=== PATIENT | male | born 1985 | race Caucasian/White ===

== ENCOUNTER → 2017-01-15 | Outpatient (CLI) | payer MEDICAID ==
[2017-01-15 15:34] LABS: CH 28.7; HCT 46.3 % (39.0-53.0); HDW 2.54; MCH 28.4 pg (25.0-35.0); MCHC 34.6 g/dL (31.0-37.0); MCV 82.2 fL (80.0-100.0); Mean Platelet Volume 7.4; RBC 5.63 m/uL (4.30-5.90); RDW 13.6 % (11.5-15.5); WBC 7.7 k/uL (3.8-10.6)
[2017-01-15 15:46] LABS: ALT 33 U/L (21-72); AST 23 U/L (17-59); Alkaline Phosphatase 67 U/L (38-126); Amylase 68 U/L (30-110); Anion Gap 15 mmol/L; Blood Urea Nitrogen 14 mg/dL (9-20); Calcium 10.2 mg/dL (8.4-10.2); Carbon Dioxide 19 mmol/L (22-30); Chloride 109 mmol/L (98-107); Glucose 101 mg/dL (74-99); Non-African American GFR(MDRD) >60 (>60 ml/min/1.73 sqM); Potassium 3.7 mmol/L (3.5-5.1); Sodium 143 mmol/L (137-145); Total Bilirubin 0.7 mg/dL (0.2-1.3); Total Protein 8.6 g/dL (6.3-8.2)
--- NOTE | 2017-01-16 07:02 | NM ---
EXAMINATION TYPE: NM hepatobiliary w EF DATE OF EXAM: 01/15/2017 COMPARISON: NONE HISTORY: Right upper quadrant pain. TECHNIQUE: After the intravenous administration of 5.37 mCi Tc 99m Mebrofenin hepatobiliary scintigra phy is performed. Immediate images post injection. FINDINGS: There is satisfactory initial accumulation of tracer by the liver. The gallbladder is visualized wit hin 46 minutes. The small bowel activity is noted within 8 minutes. At one hour 8 ounces of oral en sure plus is given to mimic CCK and gallbladder ejection fraction is calculated at 74 %, in the olegario l range. Therefore there is no scintigraphic evidence of cystic or common bile duct obstruction to s uggest acute cholecystitis or gallbladder dyskinesia. IMPRESSION: NORMAL NUCLEAR MEDICINE HEPATOBILIARY SCAN WITH EJECTION FRACTION CALCULATION.
[2017-01-16 11:08] LABS: Cholesterol 234 mg/dL (<200); HDL Cholesterol 32 mg/dL (40-60); Triglycerides 206 mg/dL (<150)
== END | disposition home or self-care (01) ==
LOC: RADNMMAIN 15:02
PROVIDERS: ATTEND Family Medicine
DX: R10.11 Right upper quadrant pain (principal); K81.0 Acute cholecystitis
CPT/HCPCS: 80061; 80053; 82150; 83690; 85027; 36415; 78226; A9537

== ENCOUNTER 2018-01-13 07:30 | Day surgery (SDC) | payer BC, MEDICAID, OTHER ==
[2018-01-08 12:32] VITALS: BMI 31.0
[~2018-01-13 07:30] MED LIST: LACTATED RINGERS 1,000 ML IV SCH; LIDOCAINE 1% 20 ML VIAL (10MG/ML) FOR IV START INTRADERMA PRN
[2018-01-13 07:55] VITALS: TEMP 97.7
[2018-01-13] MEDS ORDERED: LACTATED RINGERS 1,000 ML IV ONE (07:56)
[2018-01-13] MEDS ORDERED: PROPOFOL 10 MG/ML 20 ML VIAL IV ONE ×2 (08:10→09:14)
[2018-01-13] MEDS ORDERED: MIDAZOLAM 2 MG/2 ML VIAL ONE (08:10)
[2018-01-13] MEDS ORDERED: LIDOCAINE 1% INJ 10MG/ML (20 ML MDV) ONE ×2 (08:10→09:14)
--- NOTE | 2018-01-13 08:34 | P.PCN ---
Date of Procedure: 01/13/18 Procedure(s) Performed: PREOPERATIVE DIAGNOSIS: GERD, abdominal pain, change in bowel habits POSTOPERATIVE DIAGNOSIS: 1. Gastritis with small erosions 2. Mild distal esophagitis 3. PROCEDURE: 1. EGD with biopsy 2. Colonoscopy ANESTHESIA: [facility] [place] SURGEON: Kash Navarro M.D. SPECIMENS: Antrum, distal esophagus ENDOSCOPIC PROCEDURE: The patient was on the endoscopy table in the left decubitus position. The Olympus gastroscope was inserted into the oropharynx and passed under direct visualization to the region of the third portion of the duodenum. From that point the scope was slowly withdrawn inspecting all surfaces carefully. There were no neoplastic inflammatory or polypoid lesions throughout the duodenum. The pylorus was widely patent. The stomach was carefully inspected. There was mild gastritis present with a few small erosions noted. A biopsy of the antrum took place to rule out H. pylori. Retroflexion revealed a normal hiatus. The esophagus was then carefully examined. There was mild distal esophagitis. 2 small linear erosions measuring less than 1 cm in length were identified. Biopsies of these were taken. The remainder the esophagus appeared normal. The patient was kept on the endoscopy table in the left decubitus position. The Olympus colonoscope was inserted into the anus and passed under direct visualization to the base of the cecum. The appendiceal orifice was visualized. From that point the scope was slowly withdrawn inspecting all surfaces carefully. There were no neoplastic inflammatory or polypoid lesions throughout the cecum, ascending, transverse, descending, sigmoid and rectum. There was mild sigmoid diverticulosis noted. Digital rectal examination was normal. The patient was taken to the recovery room in stable condition per anesthesia guidelines. RECOMMENDATIONS: Increase fiber. Antiacid therapy. Consider CAT scan for evaluation of subjective right mid abdominal mass.
[2018-01-13 08:56] VITALS: RESP 16
[2018-01-13 09:02] VITALS: BP 107/74; PULSE 90
== END 2018-01-13 09:10 | disposition home or self-care (01) ==
LOC: ORWHC2ENDO 07:30
PROVIDERS: ATTEND Surgery
DX: K29.50 Unspecified chronic gastritis without bleeding (principal); K21.0 Gastro-esophageal reflux disease with esophagitis; Q21.0 Ventricular septal defect; K57.30 Diverticulosis of large intestine without perforation or abscess without bleeding; Z79.899 Other long term (current) drug therapy
CPT/HCPCS: 88305; 45378; 43239; J2250; J2001; J2704

== ENCOUNTER → 2018-03-11 | Outpatient (CLI) | payer BC ==
--- NOTE | 2018-03-11 18:02 | CT ---
EXAMINATION TYPE: CT abdomen pelvis w con DATE OF EXAM: 03/11/2018 COMPARISON: NONE HISTORY: 32-year-old male Right upper quadrant bloating after eating. Diverticulitis, abdominal pain TECHNIQUE: Contiguous axial scanning of the abdomen and pelvis following administration of 100 ml Iso jackson 300 IV contrast. Delayed images through the kidneys and coronal/sagittal reconstructions perform ed. CT DLP: 1446 mGycm Automated exposure control for dose reduction was used. FINDINGS: Heart normal size without pericardial effusion. Lung bases clear without pleural effusion. Liver mildly enlarged at 18.7 cm. No focal lesion seen. Portal venous system is patent. No biliary ductal dilatation. Gallbladder, adrenal glands, right kidney, spleen with hilar splenule, and pancreas appear within nor mal limits. The left kidney is malrotated with a subcentimeter hypodensity at the lower pole too small for accura te CT characterization, probable cyst. A few prominent but nonenlarged mesenteric and right lower quadrant mesenteric lymph nodes measuring up to 5 mm. No mesenteric or retroperitoneal lymphadenopathy. Normal appendix. Oral contrast has progressed to the distal transverse colon. There is diverticulosis of the junction of the sigmoid and descending colon. Some pericolonic fat stranding at this level suspected to repres ent prominent pericolonic vessels rather than inflammation. No abnormal wall thickening. Mild to moderate circumferential bladder wall thickening. Pelvic phleboliths. Prostate gland measures 4.4 cm wide. No abnormal fluid collection in the pelvis or pelvic lymphadenopathy. Bones: No osseous destructive process. DISH in the lower thoracic spine. IMPRESSION: 1. DIVERTICULOSIS OF THE JUNCTION OF THE DESCENDING AND SIGMOID COLON. SOME PERICOLONIC SOFT TISSUE S TRANDING IS PRESENT HERE WELL ELSEWHERE SUGGESTING PROMINENT PERICOLONIC VESSELS RATHER THAN IN FLAMMATION. NO CONVINCING FINDINGS OF ACUTE DIVERTICULITIS. 2. MILD TO MODERATE CIRCUMFERENTIAL BLADDER WALL THICKENING COULD REPRESENT CHRONIC BLADDER WALL HYPE RTROPHY OR CYSTITIS. CLINICALLY CORRELATE. 3. MILD HEPATOMEGALY (18.7 CM).
== END | disposition home or self-care (01) ==
LOC: RADCTMAIN 13:08
PROVIDERS: ATTEND Surgery
DX: K57.30 Diverticulosis of large intestine without perforation or abscess without bleeding (principal); N32.89 Other specified disorders of bladder; R16.0 Hepatomegaly, not elsewhere classified
CPT/HCPCS: 74177; Q9967

== ENCOUNTER → 2022-11-24 | Outpatient (CLI) | payer MEDICAID, OTHER ==
--- NOTE | 2022-11-24 10:54 | US ---
EXAMINATION TYPE: US scrotum with doppler. Grayscale and color Doppler Duplex imaging performed of santiago cain scrotum. DATE OF EXAM: 11/24/2022 COMPARISON: NONE CLINICAL INDICATION: Male, 36 years old with history of N50.812 LEFT TESTICULAR PAIN; Left testicle p ain and swelling. EXAM MEASUREMENTS: TESTICLES: Right Testicle: 3.8 x 2.3 x 2.9 cm Left Testicle: 4.4 x 2.4 x 2.7 cm EPIDIDYMIS HEAD: Right Epididymis: 1.0 x .9 x 1.0 cm Left Epididymis: 1.8 x 1.2 x 1.8 cm Anechoic areas seen largest measuring 2.6 x 2.8 x 3.2 cm. Doppler performed to assess for testicular vascularity; good bilateral color flow and waveforms are s een. There is no evidence of testicular torsion. Presence of hydroceles: no Presence of varicoceles: no IMPRESSION: Noted is epididymal head cyst left epididymis.
== END | disposition home or self-care (01) ==
LOC: RADUSWWP 10:05
PROVIDERS: ATTEND Family Medicine
DX: N50.3 Cyst of epididymis (principal); N50.812 Left testicular pain
CPT/HCPCS: 76870; 93975

== ENCOUNTER 2023-11-03 11:33 | Day surgery (SDC) | payer MEDICAID ==
[2023-08-27 14:38] VITALS: BMI 33.4
[~2023-11-03 11:33] MED LIST changes: +LIDOCAINE 1% (10MG/ML) FOR IV START INTRADERMA PRN; -LIDOCAINE 1% 20 ML VIAL (10MG/ML) FOR IV START INTRADERMA PRN; +ONDANSETRON 4 MG/2 ML VIAL IVP PRN
[2023-11-03] MEDS: LACTATED RINGERS 1,000 ML IV ONE (11:55)
[2023-11-03] MEDS: MIDAZOLAM 2 MG/2 ML VIAL IVP ONE (12:10)
[2023-11-03] MEDS ORDERED: PROPOFOL 10 MG/ML 20 ML VIAL IV ONE (12:12)
--- NOTE | 2023-11-03 12:15 | P.GSHP ---
History of Present Illness H&P Date: 11/03/23 Chief Complaint: Change in bowel habits 37-year-old male here for colonoscopy. Patient with history of colon cancer in many first and second-degree family members. Patient with recent increase in constipation issues. No rectal bleeding. Past Medical History Additional Past Medical History / Comment(s): VSD, heart murmur. HAS BEEN HAVING ABDOMINAL PAIN AND BLOATING OFF AN ON PAST YEAR. History of Any Multi-Drug Resistant Organisms: None Reported Past Surgical History: Tonsillectomy Additional Past Surgical History / Comment(s): CYST REMOVED FROM RIGHT SHOULDER, COLONOSCOPY. Past Anesthesia/Blood Transfusion Reactions: No Reported Reaction Additional Past Anesthesia/Blood Transfusion Reaction / Comment(s): No blood transfusion. Smoking Status: Never smoker - Past Family History Mother Family Medical History: Cancer Additional Family Medical History / Comment(s): COLON CANCER, AT AGE 45. Father Family Medical History: Hyperlipidemia, Hypertension Medications and Allergies Home Medications Medication Instructions Recorded Confirmed Type Ivabradine HCl [Corlanor] 2.5 mg PO QAM 08/27/23 11/03/23 History diazePAM 2 mg PO ONCE 10/29/23 11/03/23 History Allergies Allergy/AdvReac Type Severity Reaction Status Date / Time No Known Allergies Allergy Verified 10/29/23 15:39 Surgical - Exam Vital Signs Temp Pulse Resp BP Pulse Ox 97.3 F L 108 H 20 140/83 99 11/03/23 11:49 11/03/23 11:49 11/03/23 11:49 11/03/23 11:49 11/03/23 11:49 Physical exam: General: Well-developed, well-nourished HEENT: Normocephalic, sclerae nonicteric Abdomen: Nontender, nondistended Extremities: No edema Neuro: Alert and oriented Assessment and Plan (1) Change in bowel habits Narrative/Plan: Will proceed with colonoscopy at this time. Current Visit: Yes Status: Acute Code(s): R19.4 - CHANGE IN BOWEL HABIT SNOMED Code(s): 19221585
[2023-11-03 12:27] VITALS: TEMP 97.3
--- NOTE | 2023-11-03 12:28 | P.PCN ---
Date of Procedure: 11/03/23 Procedure(s) Performed: PREOPERATIVE DIAGNOSIS: Change in bowel habits, family history of colon cancer POSTOPERATIVE DIAGNOSIS: Mild diverticulosis, mild proctitis PROCEDURE: Colonoscopy with biopsy ANESTHESIA: [facility] SURGEON: Kash Navarro M.D. SPECIMENS: Rectum ENDOSCOPIC PROCEDURE: The patient was placed on the endoscopy table in the left decubitus position. The Olympus colonoscope was inserted into the anus and passed under direct visualization to the base of the cecum. The appendiceal orifice was visualized. From that point the scope was slowly withdrawn inspecting all surfaces carefully. There were no neoplastic inflammatory or polypoid lesions throughout the cecum, ascending, transverse, descending, and sigmoid colon. In the rectum distally for a length of 4 to 5 cm proximal to the dentate line there was mild mucosal erythema, no ulcerations or erosions. The degree of inflammation was mild. Biopsies were taken labeled proctitis. There was mild left-sided diverticulosis. Digital rectal examination was normal. The patient was taken to the recovery room in stable condition per anesthesia guidelines. RECOMMENDATIONS: Resume diet. Await biopsy results. Repeat colonoscopy 5 years. Endoscopic findings do not explain the patient's symptoms. No plans for 5-ASA suppositories at this time.
[2023-11-03 13:05] VITALS: BP 100/85; PULSE 94; RESP 18
== END 2023-11-03 13:09 | disposition home or self-care (01) ==
LOC: ORWHC2ENDO 11:33
PROVIDERS: ATTEND Surgery
DX: K62.89 Other specified diseases of anus and rectum (principal); K57.30 Diverticulosis of large intestine without perforation or abscess without bleeding; Z80.0 Family history of malignant neoplasm of digestive organs; Z85.038 Personal history of other malignant neoplasm of large intestine
CPT/HCPCS: 45380; J2250; J2704; 88305

== ENCOUNTER → 2024-02-04 | Outpatient (CLI) | payer MEDICAID ==
--- NOTE | 2024-02-05 17:17 | CA ---
Transthoracic Echo Report Name: Rogelio Burt Age: 38 Gender: M : 1985 Exam Date: 02/04/2024 18:04 Exam Location: [facility] Ht (in): 68 Wt (lb): 220 Ordering Physician: Victor M Ontiveros DO Attending/Referring Phys: Astrid Hernnadez [facility] Senior Tax Analyst Tati Leija RDCS Procedure CPT: Indications: Q21.0 ventricular septal defect Cardiac Hx: Technical Quality: Fair Contrast 1: Total Dose (mL): Contrast 2: Total Dose (mL): MEASUREMENTS (Male / Female) Normal Values 2D ECHO LV Diastolic Diameter PLAX 3.1 cm 4.2 - 5.9 / 3.9 - 5.3 cm LV Systolic Diameter PLAX 1.7 cm IVS Diastolic Thickness 1.3 cm 0.6 - 1.0 / 0.6 - 0.9 cm LVPW Diastolic Thickness 1.3 cm 0.6 - 1.0 / 0.6 - 0.9 cm LV Relative Wall Thickness 0.9 LA Volume 56.9 cm??? 18 - 58 / 22 - 52 cm??? LA Volume Index 25.6 cm???/m??? 16 - 28 cm???/m??? M-MODE Aortic Root Diameter MM 4.1 cm LA Systolic Diameter MM 4.2 cm LA Ao Ratio MM 1.0 AV Cusp Separation MM 2.4 cm DOPPLER AV Peak Velocity 141.7 cm/s AV Peak Gradient 8.0 mmHg AV Mean Velocity 97.7 cm/s AV Mean Gradient 4.3 mmHg AV Velocity Time Integral 20.1 cm LVOT Peak Velocity 106.7 cm/s LVOT Peak Gradient 4.6 mmHg LVOT Velocity Time Integral 19.0 cm MV Area PHT 5.6 cm??? Mitral E Point Velocity 76.7 cm/s Mitral A Point Velocity 109.7 cm/s Mitral E to A Ratio 0.7 MV Deceleration Time 135.1 ms MV E' Velocity 8.7 cm/s Mitral E to MV E' Ratio 8.8 TR Peak Velocity 330.0 cm/s TR Peak Gradient 43.6 mmHg Right Ventricular Systolic Press 48.6 mmHg FINDINGS Left Ventricle Mildly increased left ventricular wall thickness. Left ventricular cavity size normal. Normal left ventricular systolic function with no obvious regional wall motion abnormalities. Left ventricular ejection fraction is estimated at 55-60 %. Possibility of small membranous ventricular septal defect cannot be ruled out. Right Ventricle Normal right ventricular size and function. Moderate pulmonary hypertension. Right Atrium Normal right atrial size. Left Atrium Normal left atrial size. Mitral Valve Structurally normal mitral valve. Mild mitral annular calcification. Aortic Valve Trileaflet aortic valve. No aortic valve stenosis or regurgitation. Tricuspid Valve Structurally normal tricuspid valve. Mild tricuspid regurgitation. Pulmonic Valve Structurally normal pulmonic valve. Pericardium No pericardial effusion. Aorta Normal size aortic root and proximal ascending aorta. CONCLUSIONS LVEF 55 to 60% Mild concentric LVH. Normal LV cavity size. No obvious regional wall motion abnormality Possibility of a small membranous VSD cannot be completely ruled out. Normal RV size and function. RVSP 48 mmHg, moderately elevated Normal biatrial size No significant valvular dysfunction Previewed by: Dr Sher Haynes (Electronically Signed) Final Date: 05 February 2024 17:16
== END | disposition home or self-care (01) ==
LOC: RADECHMAIN 17:49
PROVIDERS: ATTEND Family Medicine
DX: Q21.0 Ventricular septal defect (principal)
CPT/HCPCS: 93306

== ENCOUNTER → 2024-07-28 | Outpatient (CLI) | payer MEDICAID ==
[2024-07-28 16:06] VITALS: BP 153/98; PULSE 114; RESP 16; TEMP 98
--- NOTE | 2024-07-28 17:51 | P.SLEEP ---
History of Present Illness DATE: 07/28/2024 CONSULTATION/NEW PATIENT EVALUATION HISTORY OF PRESENT ILLNESS/SLEEP-WAKE EVALUATION: 38-year-old gentleman had been evaluated in the sleep center for possible obstructive sleep apnea hypopnea syndrome. SLEEP SCHEDULE: Usually sleep schedule 12 AM until 7 AM on weekdays and until 1112 5 AM on weekend. FALLING ASLEEP: Usually no significant problems with falling asleep. DURING SLEEP: Patient usually sleeps on the side position, has significant changes of the heart rate from bradycardia during the sleep to significant tachycardia, changes of oxygen during the night following information from his Jair Mcginnis MD. No history of hypnogogical hallucinations, sleep paralysis, or cataplexy. DURING THE DAY/WAKE STATE: In the morning patient wake up tired, has problems with memory, irritability, depression, anxiety. Vilas sleepiness scale is 9. Patient may take nap after work. PAST MEDICAL HISTORY: Ventricular septal defect, PVCs, increasing blood pressure in medical offices. PAST SURGICAL HISTORY: Tonsillectomy adenoidectomy. MEDICATIONS: None at the present time. SOCIAL HISTORY: Please see below. FAMILY HISTORY: Please see below. REVIEW OF SYSTEMS: Changing of heart rate,tiredness during the day. No fevers. No double vision. No recent chest pain. No shortness of breath. No abdominal pain. No bleeding episodes. No blood in urine. No seizure episodes. PHYSICAL EXAMINATION: GENERAL: A pleasant patient without any distress. VITAL SIGNS: Please see below, weight 250 pounds, BMI 36. HEENT: PERRLA, EOMI. Evaluation of oropharynx showed tongue protrudes midline, low position of soft palate Mallampati 4. NECK: Supple. No JVD. Thyroid is not palpable. 16 inches in circumference. LUNGS: Clear to percussion and to auscultation. Good air exchange. No wheezing or rhonchi. HEART: S1, S2 regular. No murmurs, gallops or rubs. ABDOMEN: Soft and nontender. Bowel sounds are present. No organomegaly appreciated. EXTREMITIES: No clubbing or cyanosis. HEEL PRICKER: Awake, alert, and oriented x3. Cranial nerves 2 to 7 intact. There is no fasciculation or atrophy noted. No focal deficits observed. ASSESSMENT: 1. Significant changing of heart rate during sleep, decreasing oxygen during the sleep by results from the patient's watch, extremely low position of soft palate. Obstructive sleep apnea hypopnea syndrome. 2. Obesity, BMI 36. 3. Hypertension in the office, today blood pressure 153/98. 4. History of ventricular septal defect. 5 history of cardiac arrhythmia. 6 . Status post tonsillectomy and adenoidectomy. PLAN: 1. Polysomnography for evaluation of patient's breathing during sleep. 2. Following plan after reading sleep study. 3. Preferable position during sleep on the side. 4. No driving if patient feels any sleepiness. Patient is aware of civil and criminal liability for unsafe driving. 5. Sleep hygiene with regular sleep time for at least 7.5-8 hours. 6. Watching and losing weight. Thank you very much for referring this patient for consultation. Sincerely, Mu Yun MD, PhD, FAASM. Diplomat of [place] [employer], Sleep Medicine Board by [place] [employer] [place] [employer] [facility] [place] cc: Victor M Ontiveros DO Past Medical History Additional Past Medical History / Comment(s): VSD, heart murmur. HAS BEEN HAVING ABDOMINAL PAIN AND BLOATING OFF AN ON PAST YEAR. History of Any Multi-Drug Resistant Organisms: None Reported Past Surgical History: Tonsillectomy Additional Past Surgical History / Comment(s): CYST REMOVED FROM RIGHT SHOULDER, COLONOSCOPY. Past Anesthesia/Blood Transfusion Reactions: No Reported Reaction Additional Past Anesthesia/Blood Transfusion Reaction / Comment(s): No blood transfusion. Past Psychological History: No Psychological Hx Reported Additional Psychological History / Comment(s): Needle phobia needs valium for IV. Smoking Status: Never smoker Past Alcohol Use History: Occasional Past Drug Use History: None Reported - Past Family History Mother Family Medical History: Cancer, Rheumatoid Arthritis (RA) Additional Family Medical History / Comment(s): COLON CANCER, AT AGE 45. Father Family Medical History: Hyperlipidemia, Hypertension, Osteoarthritis (OA) Medications and Allergies Home Medications Medication Instructions Recorded Confirmed Type Ivabradine HCl [Corlanor] 2.5 mg PO QAM 08/27/23 11/03/23 History diazePAM 2 mg PO ONCE 10/29/23 11/03/23 History Allergies Allergy/AdvReac Type Severity Reaction Status Date / Time No Known Allergies Allergy Verified 10/29/23 15:39 Physical Exam Vitals: Vital Signs Temp Pulse Resp BP Pulse Ox 07/28/24 16:03 98 F 114 H 16 153/98 98 Intake and Output 07/28/24 07/28/24 07/28/24 06:59 14:59 22:59 Other: Weight 104.326 kg Sleep Note - Sleep Data ESS Total: 9 - Sleep Note Sleep Note: Temperature: 98 F Pulse Rate: 114 Respiratory Rate: 16 Blood Pressure: 153/98 SpO2: 98 Height: 5 ft 7 in Weight: 104.326 kg BMI: Neck Circumference: 16
== END ==
LOC: 3 N SLEEP 15:37
PROVIDERS: ATTEND Internal Medicine
DX: G47.33 Obstructive sleep apnea (adult) (pediatric) (principal); E66.9 Obesity, unspecified; I10 Essential (primary) hypertension; Z86.79 Personal history of other diseases of the circulatory system; Z98.890 Other specified postprocedural states; Z90.89 Acquired absence of other organs; Z68.36 Body mass index [BMI] 36.0-36.9, adult
CPT/HCPCS: 99211